=== PATIENT | male | born 1980 | race Two or more races ===

== ENCOUNTER 2019-09-17 04:12 | Emergency (ER) | payer MEDICAID, OTHER ==
[~2019-09-17] VITALS: Ht 170.2 cm; Wt 95.3 kg
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
--- NOTE | 2019-09-17 04:40 | NUR ---
PATIENT TAKEN TO CT.
--- NOTE | 2019-09-17 05:10 | NUR ---
PATIENT RECEIVED 8 LISA.
--- NOTE | 2019-09-17 05:37 | NUR ---
Patient discharged to home in stable condition. Written and verbal after care instructions given. Patient verbalizes understanding of instruction.
[2019-09-17 05:46] VITALS: BP 111/63
== END 2019-09-17 05:50 | disposition home or self-care (01) ==
LOC: ER 04:14
DX: S01.81XA Laceration without foreign body of other part of head, initial encounter (principal); X58.XXXA Exposure to other specified factors, initial encounter; Y93.89 Activity, other specified; Y92.89 Other specified places as the place of occurrence of the external cause; Y99.8 Other external cause status
CPT/HCPCS: 70450-TC